=== PATIENT | male | born 1950 | race Caucasian/White ===

== ENCOUNTER 2022-02-05 11:53 | Day surgery (SDC) | payer MEDICARE ==
[2022-01-29 15:27] LABS: BASOPHILS % (AUTO) 0.5 % (0-1); EOSINOPHILS # (AUTO) 0.2 X10'3 (0-0.9); EOSINOPHILS % (AUTO) 2.7 % (0-6); HEMATOCRIT 39.4 % (42.0-52.0); LYMPHOCYTES # (AUTO) 1.1 X10'3 (1.1-4.8); LYMPHOCYTES % (AUTO) 17.9 % (21-51); MEAN CORPUSCULAR HEMOGLOBIN 30.5 PG (27.0-31.0); MEAN CORPUSCULAR VOLUME 92.5 FL (78-98); MEAN PLATELET VOLUME 8.5 FL (7.4-10.4); MONOCYTES # (AUTO) 0.6 X10'3 (0-0.9); MONOCYTES % (AUTO) 9.6 % (2-12); NEUTROPHILS # (AUTO) 4.4 X10'3 (1.8-7.7); NEUTROPHILS % (AUTO) 69.3 % (42-75); PLATELET COUNT 221 X10'3 (140-440); RED BLOOD COUNT 4.26 X10'6 (4.70-6.10); RED CELL DISTRIBUTION WIDTH 15.3 % (11.5-14.5); WHITE BLOOD COUNT 6.4 X10'3 (4.5-11.0)
[2022-01-29 15:46] LABS: ALBUMIN 3.6 G/DL (3.4-5.0); ANION GAP 9 (8-16); BLOOD UREA NITROGEN 22 MG/DL (7-18); BUN/CREATININE RATIO 14.9 (5.4-32.0); CALCIUM 9.1 MG/DL (8.5-10.1); CHLORIDE 103 MMOL/L (99-107); CREATININE 1.48 MG/DL (0.60-1.10); GLUCOSE 141 MG/DL (70-104); POTASSIUM 4.2 MMOL/L (3.5-5.1); SODIUM 143 MMOL/L (135-145); TOTAL CARBON DIOXIDE 30.7 MMOL/L (24-32); eGFR 47 ML/MIN
[2022-01-29 15:50] LABS: APTT 38 SECONDS (22-32)
[2022-02-05] VITALS (10 sets, daily range): BP systolic 97–148; BP diastolic 49–77
[~2022-02-05] VITALS: Ht 177.8 cm; Wt 125.4 kg
[2022-02-05] MEDS ORDERED: normal saline 1000ml 1,000 ML IV SCH (12:25)
[2022-02-05] MEDS ORDERED: fentaNYL/PF 50MCG/1 ML 2ML syringe IV ONE (12:25)
[2022-02-05] MEDS ORDERED: MIDAZolam 1mg/ml 10ml vial IV ONE (12:25)
[2022-02-05] MEDS ORDERED: WARF-65 PO (13:00)
[2022-02-05] MEDS ORDERED: METF-1203 PO (13:00)
[2022-02-05] MEDS ORDERED: LISI5TAB22 PO (13:00)
[2022-02-05] MEDS ORDERED: FURO20TA4 PO (13:00)
[2022-02-05] MEDS ORDERED: ATOR40TA72 PO (13:00)
[2022-02-05] MEDS ORDERED: CARV6.257 PO (13:00)
[2022-02-05] MEDS ORDERED: WARF-55 PO (13:00)
[2022-02-05] MEDS ORDERED: AMIO200T27 PO (13:00)
[2022-02-05] MEDS ORDERED: ASPI-1071 PO (13:02)
[2022-02-05] MEDS ORDERED: CHOL200012 PO (13:02)
== END 2022-02-05 14:50 | disposition home or self-care (01) ==
LOC: SSTAY O 11:53
PROVIDERS: ATTEND Student in an Organized Health Care Education/Training Program
DX: I48.91 Unspecified atrial fibrillation (principal); E11.9 Type 2 diabetes mellitus without complications; I11.0 Hypertensive heart disease with heart failure; I50.9 Heart failure, unspecified; Z79.899 Other long term (current) drug therapy; Z98.890 Other specified postprocedural states; Z79.01 Long term (current) use of anticoagulants
CPT/HCPCS: 36415; 80048; 82948; 85025; 85610; 85730; 92960; 93005; 94799; J2250; J3010; J7030; A4620

== ENCOUNTER 2025-04-26 10:47 | Day surgery (SDC) | payer MEDICARE ==
[2025-04-22 13:02] LABS: MEAN PLATELET VOLUME 8.8 FL (7.4-10.4); RED CELL DISTRIBUTION WIDTH 16.0 % (11.5-14.5)
[2025-04-22 13:13] LABS: APTT 31 SECONDS (22-32); INR 1.2 INR
[2025-04-22 13:19] LABS: CHOL/HDL RATIO 2.6 (0.00-4.99); CREATININE 1.54 MG/DL (0.60-1.10); LDL CHOLESTEROL 66 MG/DL (50-100); TOTAL CARBON DIOXIDE 25.9 MMOL/L (24-32); eGFR 44 ML/MIN
[2025-04-26] VITALS (9 sets, daily range): BP systolic 112–140; BP diastolic 51–61; PULSE 54–67; RESP 14–16; TEMP 97.7; O2SAT 92–97
[~2025-04-26] VITALS: Ht 180.3 cm; Wt 113.2 kg
[~2025-04-26 10:47] MED LIST: APIX5TAB3 PO; ATOR40TA72 PO; EMPA10TA PO; FURO40TA4 PO; LANTUS SQ; METO-395 PO; SEMA2PEN IJ
--- NOTE | 2025-04-26 11:45 | ELECTROCARDIOGRAPH REPORT ---
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 JORGE A Torres Measurements Intervals [place] Rate: 65 P: 0 [place]: 0 QRS: 63 QRSD: 109 T: 178 QT: 451 QTc: 469 Interpretive Statements Atrial fibrillation Ventricular premature complex Abnormal T, consider ischemia, diffuse leads Electronically Signed On 04-26-2025 18:49:[address] JORGE A Torres Please click the below link to view image of tracing.
[2025-04-26] MEDS ORDERED: midazolam 1 mg/ML 2ml injection ONE (13:44)
[2025-04-26] MEDS ORDERED: LIDOcaine 1% 30ml preserv. free vial ONE (13:44)
[2025-04-26] MEDS ORDERED: fentaNYL/PF 50MCG/1 ML 2ML syringe ONE (13:45)
[2025-04-26] MEDS ORDERED: iohexol 350 MG/ML 50ML vial IV ONE (14:33)
[2025-04-26] MEDS ORDERED: OXAZEpam 15mg capsule PO PRN (15:30)
[2025-04-26] MEDS ORDERED: HYDROcodone/acetaminophen 5mg/325mg tablet PO PRN (15:30)
[2025-04-26] MEDS ORDERED: HYDROcodone/acetaminophen 10/325mg tab PO PRN (15:30)
[2025-04-26] MEDS ORDERED: ondansetron/PF 4mg/2ml inj IV PRN (15:30)
[2025-04-27 06:20] LABS: ISTAT HGB MIX 13.9 g/dl (14.0-17.9); ISTAT Hct MIX 41 %PCV (42-52); ISTAT O2 SATURATION MIX VENOUS 49 % (60-80); ISTAT SOURCE VEN
--- NOTE | 2025-05-22 08:55 | CARDIOLOGY REPORT ---
DATE OF SERVICE: 04/26/2025 DICTATING PHYSICIAN: Ivana Schaeffer MD CARDIAC CATHETERIZATION REPORT DATE OF STUDY: 04/26/2025 PROCEDURES: * Right heart catheterization. * Selective coronary angiography. * Selective coronary artery bypass graft angiography x 2. * Conscious sedation monitoring time for 30 minutes. INDICATION: Aortic stenosis. PHYSICIAN: Raine Schaeffer MD. DESCRIPTION OF PROCEDURE: After informed consent was obtained, the patient was brought to the lab where he was prepped and draped in the usual sterile fashion. A 6-F sheath was inserted into the right femoral artery and an 8-[place] sheath in the right femoral vein. Next, using a Hanahan-Rasheeda catheter, the catheter was advanced under fluoroscopy guidance into the outflow tract and into a wedge position with pulmonary capillary wedge pressure and right-sided pressures obtained. Thereafter, using a JL4 followed by a JR4 catheter, the catheter was advanced under fluoroscopy guidance over 0.035 wire and selective coronary angiography was performed. The JR4 catheter was manipulated to engage the left subclavian and non-selective left subclavian and left internal mammary artery angiography was performed. Thereafter, using a multipurpose catheter, the catheter was advanced and selective angiography of the vein graft to the RCA was performed. HEMODYNAMICS: For the patient's hemodynamics, please refer to the event log. The patient's pulmonary capillary wedge pressure was 24/3 with a mean of 23 mmHg. Pulmonary arterial pressure was 57/27 with a mean of 38 mmHg. Right ventricular pressure was 55/11 with a mean of 14 mmHg. Right atrial pressure was 14/15 with a mean of 3 mmHg. Pulmonary arterial saturation was 49%. Aortic saturation was 94%. FINDINGS: The left main coronary artery is calcified with mild disease. 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 The left internal mammary artery to the LAD is patent. The vein graft to the RCA is a small caliber vessel with a 40% proximal stenosis. IMPRESSION: * Please note that very limited contrast was used in view of the patient's chronic kidney disease. 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 Left internal mammary artery to the left anterior descending artery is patent and the vein graft to the right coronary artery is also patent with 40% proximal stenosis. * Elevated right sided pressures. Mean pulmonary capillary wedge pressure was 23 and the patient's mean pulmonary arterial pressure 38 mmHg. Ivana Schaeffer MD TID: [id number] RECEIPT: [id number] MARTHA
== END 2025-04-26 17:45 | disposition home or self-care (01) ==
LOC: SSTAY O 10:47
PROVIDERS: ATTEND Student in an Organized Health Care Education/Training Program
DX: I35.2 Nonrheumatic aortic (valve) stenosis with insufficiency (principal); I11.0 Hypertensive heart disease with heart failure; I50.9 Heart failure, unspecified; I48.91 Unspecified atrial fibrillation; E11.9 Type 2 diabetes mellitus without complications; J44.89 Other specified chronic obstructive pulmonary disease; I25.10 Atherosclerotic heart disease of native coronary artery without angina pectoris; Z88.8 Allergy status to other drugs, medicaments and biological substances; Z79.01 Long term (current) use of anticoagulants; Z79.4 Long term (current) use of insulin; Z79.899 Other long term (current) drug therapy
CPT/HCPCS: 36415; 80048; 80061; 82803; 82948; 85014; 85025; 85610; 85730; 93005; 93457; 99152; 99153; A6258; C1751; C1760; C1887; J1644; J2003; J2250; J3010; J7030; Q0163; Q9967; Z7610; 93461